=== PATIENT | female | born 1970 | race Caucasian/White ===

== ENCOUNTER 2019-02-18 18:56 | Emergency (ER) | payer MEDICAID, OTHER ==
[~2019-02-18] VITALS: Wt 69.2 kg
[2019-02-18 19:05] VITALS: BP 139/65; PULSE 89; RESP 18
[2019-02-18] MEDS ORDERED: HC30CR25 TOP (21:47)
[2019-02-18] MEDS ORDERED: BEN25 PO (21:47)
[2019-02-18] MEDS ORDERED: PRED20TA PO (21:47)
[2019-02-18] MEDS ORDERED: ELIM TOP (21:47)
--- NOTE | 2019-02-18 21:50 | ERD ---
ER Documentation Chief Complaint Chief Complaint RASH ON SHOULDERS AND CHEST X'S 1 MONTH HPI 48-year-old female presents with a intermittent itchy rash on the extremities and trunk the last month. She was exposed to somebody with scabies patient has fevers, vomiting, shortness breath, chest pain, additional symptoms. ROS All systems reviewed and are negative except as per history of present illness. Medications Home Meds Active Scripts Hydrocortisone* Topical (Hydrocortisone* Topical) 2.5%-28.3 Gm Cream..g., 1 A PPLIC TOP BID for 7 Days, #1 TUB Prov:BRIT COREA MD 02/18/19 Prednisone* (Prednisone*) 20 Mg Tab, 40 MG PO DAILY for 4 Days, TAB Prov:BRIT COREA MD 02/18/19 Diphenhydramine Hcl* (Benadryl*) 25 Mg Cap, 25 MG PO Q6, #20 CAP Prov:BRIT COREA MD 02/18/19 Permethrin* (Elimite*) 5% Cr, 1 APPLIC TOP ONCE for 1 Day, TUB Prov:BRIT COREA MD 02/18/19 Allergies Allergies: Coded Allergies: No Known Allergy (Unverified , 02/18/19) FmHx Family History: No diabetes, No coronary disease, No other Physical Exam Vitals Vital Signs Date Temp Pulse Resp B/P (MAP) Pulse Ox O2 O2 Flow FiO2 Time Delivery Rate 02/18/19 99.0 89 18 139/65 99 19:05 (89) Physical Exam Const: No acute distress Head: Atraumatic Eyes: Normal Conjunctiva ENT: Normal External Ears, Nose and Mouth. Neck: Full range of motion. No meningismus. Resp: Clear to auscultation bilaterally Cardio: Regular rate and rhythm, no murmurs Abd: Soft, non tender, non distended. Normal bowel sounds Skin: No petechiae or purpura. Scattered excoriated maculopapular rash on the upper back and extremities. No definite serpiginous lesions or lesions in webspaces. Back: No midline or flank tenderness Ext: No cyanosis, or edema Neur: Awake and alert Psych: Normal Mood and Affect Procedures/MDM Patient presents with nonspecific itchy rash on the trunk and extremities. She does not have classic scabies although given exposure and duration of symptoms we will treat empirically with permethrin, short course of prednisone, Benadryl and hydrocortisone. She has no signs of cellulitis, purpura, life-threatening rashes. The patient was stable with no new complaints during the ER course. Clinically, there is no current evidence to suggest meningitis, sepsis, acute abdomen, pneumonia, stroke, acute coronary syndrome, pulmonary embolism, aortic dissection or any other emergent condition appearing to require further evaluation or hospitalization. Patient counseled regarding my diagnostic impression and care plan. Prior to discharge all questions answered. Pt agrees with treatment plan and understands strict return precautions. Pt is instructed to follow up with primary care provider within 24-48 hours. Precautionary instructions provided including instructions to return to the ER if not improving or for any worsening or changing symptoms or concerns. Disclaimer: Inadvertent spelling and grammatical errors are likely due to EHR/dictation software use and do not reflect on the overall quality of patient care. Also, please note that the electronic time recorded on this note does not necessarily reflect the actual time of the patient encounter. Departure Diagnosis: Primary Impression: Rash Condition: Stable Patient Instructions: Scabies, Dermatitis, Non-Specific [facility]errals: [facility] Usted se moreau hecho un examen mdico de control que le indica que no est en luda condicin que requiera tratamiento urgente en el Departamento de Emergencia. Un estudio ms profundo y el tratamiento de darby condicin pueden esperar sin ningn riesgo hasta que usted sea atendida/o en el consultorio de darby mdico o luda clnica. Es responsabilidad suya arreglar luda andrey para el seguimiento del lisandro. MANEJO DE CONDICIONES NO URGENTES EN EL FUTURO 1) Si usted tiene un mdico de atencin primaria: Usted debera llamar a darby mdico de atencin primaria antes de venir al departamento de emergencia. Despus de las horas de consultorio, darby doctor o darby asociado/a est disponible por telfono. El mdico o enfermero de smooth en el servicio telefnico puede asesorarle por danelle medio para atender el problema, o c aso contrario se puede programar luda andrey. 2) Si usted no tiene un mdico de atencin primaria: Llame al mdico o clnica de referencia que aparece abajo kishore las horas de consultorio para hacer luda andrey para que le vean. CLINICAS: [facility] [phone] [facility] [phone] [address] [facility] [phone] [facility] [phone] [place] [phone] [facility] [address] [address] [address] [phone] [address] Additional Instructions: Examines normal hoy. Cheque otro vez con darby doctor primario en el proximo chung or regresa para mas o nueva simptomas. BRIT COREA MD February 18, 2019 21:50
== END 2019-02-18 22:41 | disposition home or self-care (01) ==
LOC: FTE 18:56
DX: R21 Rash and other nonspecific skin eruption (principal)
CPT/HCPCS: 99283